=== PATIENT | male | born 1995 | race African-American/Black ===

== ENCOUNTER 2021-10-13 08:30 | Emergency (ER) | payer OTHER, SELFPAY ==
[2021-10-13] MEDS ORDERED: Ibuprofen 800 MG TAB ONE (09:00)
== END 2021-10-13 10:03 | disposition home or self-care (01) ==
LOC: NAV ERS 08:30
DX: S52.122A Displaced fracture of head of left radius, initial encounter for closed fracture (principal); W01.0XXA Fall on same level from slipping, tripping and stumbling without subsequent striking against object, initial encounter; Y93.02 Activity, running; Y92.009 Unspecified place in unspecified non-institutional (private) residence as the place of occurrence of the external cause